=== PATIENT | male | born 1995 | race Hispanic/Latino ===

== ENCOUNTER 2017-07-30 01:26 | Emergency (ER) | payer OTHER ==
[2017-07-30] MEDS: NS 1,000 ML IV (02:45)
[2017-07-30] MEDS ORDERED: ONDANSETRON 4MG/2ML VIAL (J2405) As Ordered (02:46)
[2017-07-30 02:48] LABS: BEDSIDE GLUCOSE 120 MG/DL (70-105)
[2017-07-30] MEDS: ONDANSETRON 4MG/2ML VIAL (J2405) IV (02:54)
[2017-07-30] MEDS: LIDOCAINE W/EPINEPHRINE 1% 20ML VIAL SC (03:33)
[2017-07-30] MEDS ORDERED: IBUPROFEN 600 MG TAB As Ordered (04:26)
[2017-07-30] MEDS: IBUPROFEN 600 MG TAB PO (04:55)
== END 2017-07-30 05:10 | disposition home or self-care (01) ==
LOC: M ED 01:26
DX: S01.01XA Laceration without foreign body of scalp, initial encounter (principal); S01.511A Laceration without foreign body of lip, initial encounter; S02.2XXA Fracture of nasal bones, initial encounter for closed fracture; F10.129 Alcohol abuse with intoxication, unspecified; W19.XXXA Unspecified fall, initial encounter; Y92.9 Unspecified place or not applicable; Y93.9 Activity, unspecified
CPT/HCPCS: J2405